=== PATIENT | female | born 1950 | race Caucasian/White ===

== ENCOUNTER → 2018-02-20 15:02 | Outpatient (CLI) | payer MEDICARE, SELFPAY ==
[2018-02-20 18:16] LABS: Anion Gap 7 (5-15); BUN 19 mg/dL (7-18); BUN/Creat Ratio 15.3 RATIO (10-20); Calcium,Total 8.9 mg/dL (8.5-10.1); Chloride 105 mmol/L (98-107); Creatinine, Serum 1.24 mg/dL (0.55-1.02); EST Glomerular Filtration Rate 46 mL/min (>60); Est Glom Filt Rate - Afr Amer 55 mL/min (>60); Glucose 106 mg/dL (74-106); Potassium 3.9 mmol/L (3.5-5.1); Sodium Level 138 mmol/L (136-145); Thyroid Stim Hormone (TSH) 0.17 uIU/mL (0.358-3.74)
== END ==
PROVIDERS: Family Provider Family Medicine; PCP Family Medicine; Visit Provider Family Medicine
DX: E03.9 Hypothyroidism, unspecified (principal); N18.9 Chronic kidney disease, unspecified
CPT/HCPCS: 36415; 80048; 84443

== ENCOUNTER → 2019-09-15 10:06 | Outpatient (CLI) | payer MEDICARE, SELFPAY ==
[2019-09-15 12:43] LABS: Absolute Neutrophil Count 4.3 X10^3/uL (2.0-7.7); Basophil# 0.06 X10^3/uL; Eosinophil# 0.38 X10^3/uL; Eosinophils% 6.1 % (0-5); Hematocrit 43.7 % (37-47); Lymphocyte % 16.1 % (19-41); Mean Corpuscular Hgb 28.5 pg (27.0-32.0); Mean Corpuscular Volume 88.8 fL (81-99); Mean Platelet Vol. 9.1 fl (6.2-12.0); Monocyte# 0.44 X10^3/uL; Monocyte% 7.1 % (0-10); NRBC Flagged by Analyzer 0 % (0-5); Neutrophil # 4.28 X10^3/uL (2.7-7.7); Neutrophil % 68.9 % (47-70); Platelet Count 306 K/mm3 (150-450); RBC Distribution Width CV 13.3 % (11.6-14.6); RBC Distribution Width SD 43.4 fl (35.1-43.9); Red Blood Count 4.92 M/mm3 (4.2-5.4); White Blood Count 6.2 K/mm3 (4.4-11.0)
[2019-09-15 13:19] LABS: Anion Gap 6 (5-15); BUN 18 mg/dL (7-18); Calcium,Total 9.2 mg/dL (8.5-10.1); Chloride 105 mmol/L (98-107); EST Glomerular Filtration Rate 47 mL/min (>60); Est Glom Filt Rate - Afr Amer 57 mL/min (>60); Glucose 95 mg/dL (74-106); Potassium 4.1 mmol/L (3.5-5.1); Sodium Level 139 mmol/L (136-145); T4 Free Direct 1.22 ng/dL (0.76-1.46); Thyroid Stim Hormone (TSH) 1.02 uIU/mL (0.358-3.74)
== END ==
PROVIDERS: Family Provider Family Medicine; PCP Family Medicine; Visit Provider Family Medicine
DX: E03.9 Hypothyroidism, unspecified (principal); R53.83 Other fatigue; R60.9 Edema, unspecified
CPT/HCPCS: 36415; 80048; 84439; 84443; 85025

== ENCOUNTER → 2019-12-24 08:30 | Outpatient (CLI) | payer MEDICARE, SELFPAY ==
--- NOTE | 2019-12-24 08:40 | RAD_ITS ---
STUDY: X-RAY - THORACIC SPINE REASON FOR EXAM: Female, 69 years old. fell 2 weeks ago, mid upper back pain getting worse TECHNIQUE: 3 view(s) of the thoracic spine were obtained. COMPARISON: None. FINDINGS: Normal kyphosis of the thoracic spine. There is no substantial scoliosis. There is multilevel endplate spondylosis of the thoracic vertebrae. There is multilevel disc space narrowing of the thoracic spine. There is a granuloma in the right upper lobe. RAD/Thoracic Spine 3 Views IMPRESSION: No compression fracture. Degenerative changes. Electronically Signed: Sammy Lott MD (Brooks) at 16:51 EDT , Service support ,
== END ==
LOC: HPRAD 08:37 → MTRAD 08:39
PROVIDERS: PCP Family Medicine; Referring Provider Family Medicine; Visit Provider Family Medicine
DX: M54.6 Pain in thoracic spine (principal); W19.XXXA Unspecified fall, initial encounter
CPT/HCPCS: 72072

== ENCOUNTER → 2020-04-12 14:54 | Outpatient (CLI) | payer MEDICARE, SELFPAY ==
--- NOTE | 2020-04-12 15:00 | VDLE_ITS ---
Reason For Study: Edema RIGHT LEFT CFV is compressible, spontaneous, phasic, GSV is normal. competent and demonstrates normal CFV is compressible, spontaneous, phasic, augmentation. competent, and demonstrates normal Procedure augmentation. Exam performed in department. FV is compressible, spontaneous, phasic, A preliminary report was called and/or faxed competent and demonstrates normal to Dr. Gonzalez. augmentation. POP V is compressible, spontaneous, phasic, competent and demonstrates normal augmentation. T/P Trunk is compressible. PTV is compressible. LT PerV is compressible. Interpretation Summary There is no evidence of left lower extremity deep vein thrombosis. Left great saphenous vein appears patent and compressible segmentally. Normal patent/compressible right common femoral vein Ordering Physician: Tanya Gonzalez Referring Physician: Emmett Marshall Performed By: Kassie Ventura, DEVI, RVT
== END ==
PROVIDERS: PCP Family Medicine; Referring Provider Family Medicine; Visit Provider Family Medicine
DX: M79.605 Pain in left leg (principal); L53.9 Erythematous condition, unspecified; R60.9 Edema, unspecified
CPT/HCPCS: 93971

== ENCOUNTER 2020-05-17 10:00 | Outpatient (RCR) | payer MEDICARE, SELFPAY ==
--- NOTE | 2020-05-02 11:00 | HP.PTEVAL ---
Patient's Visit Information ATIYA TAVAREZ is a 69 year old F referred to Physical Therapy by Dr. Emmett Marshall MD with a diagnosis of REPEATED FALLS,H/O FALLS. Date of Evaluation: 05/02/20 Physical Therapist: Bernard Yates, PT, Cert MDT, OCS - Visit Plan Frequency: 2x /Week Duration: 4 Weeks Plan: PT INTERVENTION PROGRESSIVE BALANCE TRAINING,LE STRENGTHENING,FUNCTIONAL STRENGTHENING,ENDURANCE PROGRAM - Subjective This 69 y/o feamle presents to physical therapy with due to falling. Patient has been falling several times past several times past months. Patient falls started last year and and about once a month . Most recently fell off step walking dog bruised left elbow, fell over log in February most of the tIme mechanical fall.Patient doesnt know what is causing the falls.Due to falls patient has developed multiple brusing and laceration. Seen Dr recommneded PT and use cane. Denies dizziness ,tinnutus,visual deficits. Pateint denies weakness. Patient does steps one step at a time.Patient is risk for falls causing injury . Patient contion affects QOL and function. Pateint condition affects ability to walk safely and perform ADL'S /housework tasks. SOCIAL: . VOACTION: retired - Pain Bilateral Back Pain Intensity (Out of 10): 2 Pain Intensity Range: 10 - Objective POSTURE: mild foward posture. GAIT: reciprocal pattern mild unstaedy no LOB. NEURO denies parathesia/tingling,intact. BALANCE: good-. STAIRS: one step at a time with rail. MMT: quads/hams 4-/5,hip abd 3+/5 ,flexion 4-/5. FLEXABLITY : hams mild tight,ankle G-S mild tifght - Balance Scores Functional Gait Assessment Score: 14 % Disability: 53.3400 CATSIB Score (Max score 120 seconds): 88 - Goals Goal 1:: Independant with HEP. Goal Time Frame: 4-6 Weeks Goal 2:: Pateint improve functional gait assessment score by 5 points or > to decrease risk of falls Goal Time Frame: 4-6 Weeks Goal 3:: Patient to improve CATSIB score by 5 points or > to decrease risk of falls Goal Time Frame: 4-6 Weeks Goal 4:: Patient to increase leg strength to 4/5 to improve gait. Goal Time Frame: 4-6 Weeks Goal 5:: Patient to improve LFES score by 5 points or > to improve function and gait. Goal Time Frame: 4-6 Weeks - Rehabilitation Potential Physical Therapy Diagnosis: This patient has h/o of multiple falls with weakness in lower legs thus is risk from further injuries thus will benifit from skilled PT Rehabilitation Potential: Good - Anticipated Interventions Patient/Client Instruction: Educate patient on: Condition, Plan of Care For the Purpose of:: To decrease pain, To increase ROM, To improve muscle performance and motor function, To improve ability to perform ADL's, To increase tolerance to activity/condition/position, To improve ability of physical actions for home/community/work/leisure, To improve gait and locomotor functions, To improve endurance, To improve balance, To improve safety with gait, To reduce risk of recurrence, To prevent re-injury, To improve ability to perform tasks related to life management Therapeutic Exercise to Include: Strength training, Endurance training, Balance training, Gait and locomotor training Comment: LE STRENGTHENING For the Purpose of:: To improve muscle performance and motor function, To improve ability to perform ADL's, To increase tolerance to activity/condition/position, To improve performance and independence with ADL's, To improve ability of physical actions for home/community/work/leisure, To improve gait and locomotor functions, To improve endurance, To improve balance, To improve safety with gait, To improve ability to perform tasks related to life management Thank you for the opportunity to evaluate your patient. For Medicare and Medicare HMO plans, please review the plan of care and approve it. It will need to be FAXED BACK to us at [phone] for Medicare purposes. For Medicare only, by signing this I certify the plan of care. Please let me know if there are questions or concerns regarding this plan of care. Physician Signature: Date:
== END 2020-05-17 19:00 | disposition home or self-care (01) ==
LOC: PT 10:00
PROVIDERS: PCP Family Medicine; Referring Provider Family Medicine; Visit Provider Family Medicine
DX: R29.6 Repeated falls (principal)
CPT/HCPCS: 97110; 97162

== ENCOUNTER → 2020-09-15 15:24 | Outpatient (CLI) | payer MEDICARE, SELFPAY ==
--- NOTE | 2020-09-15 15:27 | RAD_ITS ---
STUDY: X-RAY - RIGHT KNEE REASON FOR EXAM: Female, 69 years old. Pain in both knees for a long time getting worse. Having a lot of grinding and popping also in both. Patient states has had many falls over the yrs. TECHNIQUE: 5 view(s) of the knee. COMPARISON: None. FINDINGS: Normal visualized distal femur. Normal visualized proximal tibia and fibula. Normal proximal tibiofibular articulation. There is severe degenerative arthrosis of the medial femorotibial compartment with severe joint space narrowing. There is mild degenerative arthrosis of the lateral femorotibial compartment. There is mild degenerative arthrosis of the patellofemoral articulation. The soft tissue structures are unremarkable. RAD/Knee 4 or More Views IMPRESSION: Degenerative arthrosis. Electronically Signed: Mychal Fonseca MD at 10:14 EST Tel , Service support ,
--- NOTE | 2020-09-15 15:35 | RAD_ITS ---
STUDY: X-RAY - LEFT KNEE REASON FOR EXAM: Female, 69 years old. Pain in both knees for a long time getting worse. Having a lot of grinding and popping also in both. Patient states has had many falls over the yrs. TECHNIQUE: 4 view(s) of the knee. COMPARISON: None. FINDINGS: Normal visualized distal femur. Normal visualized proximal tibia and fibula. Normal proximal tibiofibular articulation. There is severe degenerative arthrosis of the medial femorotibial compartment with severe joint space narrowing. There is mild degenerative arthrosis of the lateral femorotibial compartment. There is mild degenerative arthrosis of the patellofemoral articulation. The soft tissue structures are unremarkable. RAD/Knee 4 or More Views IMPRESSION: Degenerative arthrosis. Electronically Signed: Mychal Fonseca MD at 10:14 EST Tel , Service support ,
== END ==
PROVIDERS: PCP Family Medicine; Referring Provider Family Medicine; Visit Provider Family Medicine
DX: M25.561 Pain in right knee (principal); M25.562 Pain in left knee
CPT/HCPCS: 73564

== ENCOUNTER → 2020-10-20 14:08 | Outpatient (CLI) | payer MEDICARE, SELFPAY | PROVIDERS: PCP Family Medicine; Visit Provider Family Medicine | DX: N39.0 Urinary tract infection, site not specified (principal) | CPT/HCPCS: 87086; 87088; 87186 ==

== ENCOUNTER 2020-11-24 07:50 | Day surgery (SDC) | payer MEDICARE, SELFPAY ==
[2020-11-13 14:05] VITALS: BMI 39.1
--- NOTE | 2020-11-24 | EGD_PTH ---
PATIENT: ATIYA TAVAREZ LOC: EN U#:[id number] AGE/SX: 70/F ROOM: RE11/24/[address]: Dr. Feliberto Mann MD : 1950 BED: DIS: 11/24/2020 SPEC #: [id number] RECD: 11/24/20 11:37 STATUS: ROBBI MCCOY #: [id number] JING: 11/24/20 00:[address]: Feliberto Mann DEPT: SURGICAL PATHOLOGY RECD BY: Tao Dumont ENTERED: 11/24/20 11:38 SP TYPE: EGD BIOPSY OT DR: Dr. Stefan Sheikh MD Tissues: A - Duodenum, NOS B - Gastric mucous membrane C - Gastric mucous membrane D - Esophageal mucous membrane E - COLON BIOPSY F - Rectum, NOS G - Rectum, NOS Procedures: Special Stain Group II Surgery Specimen Level IV Alcian Blue/PAS (control) HEADER OPERATION: Colonoscopy, EGD ([facility] [place]) PRE-OP DIAGNOSIS: Diverticulitis, GERD, Esophagitis, diarrhea TISSUE SUBMITTED: A - Duodenum biopsy, B - Antrum biopsy for histo and H. pylori, C - EG junction biopsy, D - Mid esophagus biopsy, E - Random colonic biopsy, F - Proximal rectum polyps (x2) biopsy, G - Distal rectum polyp biopsy MICROSCOPIC DIAGNOSIS A. Duodenum, biopsy: No pathologic change. B. Gastric antrum, biopsy: Mild chronic gastritis. See comment. C. Gastroesophageal junction, biopsy: Ulceration with associated acute and chronic inflammation and granulation. No evidence of goblet cell metaplasia. Focal changes of reflux. See comment. D. Mid esophagus, biopsy: Fragments of benign squamous mucosa with no pathologic change. E. Colon, random biopsy: No pathologic change. F. Proximal rectal polyp, biopsy: Fragments of hyperplastic polyp. G. Distal rectal polyp, biopsy: Hyperplastic polyp. AM:jada 11/27/2020 COMMENT B. The results of immunohistochemistry for Helicobacter pylori will be reported separately ([id number]). C. Alcian blue/PAS stain with matched control supports the above diagnosis. MICROSCOPIC DESCRIPTION Slides are reviewed. GROSS DESCRIPTION A - Received in fixative is one container labeled with the patient's name and designated duodenum biopsy. The specimen consists of one irregular fragment of light yin soft tissue that measures 0.3 x 0.3 x 0.1 cm. The specimen is totally submitted in one cassette. B - Received in fixative is one container labeled with the patient's name and designated antrum biopsy. The specimen consists of one irregular fragment of light yin soft tissue that measures 0.3 x 0.3 x 0.1 cm. The specimen is totally submitted in one cassette. C - Received in fixative is one container labeled with the patient's name and designated EG junction biopsy. The specimen consists of multiple irregular fragments of light yin soft tissue that in aggregate measure 1 x 0.4 x 0.1 cm. The specimen is totally submitted in one cassette. D - Received in fixative is one container labeled with the patient's name and designated mid esophagus biopsy. The specimen consists of one irregular fragment of light yin soft tissue that measures 0.6 x 0.3 x 0.1 cm. The specimen is totally submitted in one cassette. E - Received in fixative is one container labeled with the patient's name and designated random colonic biopsy. The specimen consists of multiple irregular fragments of light iyn soft tissue that in aggregate measure 1.5 x 0.4 x 0.1 cm. The specimen is totally submitted in one cassette. F - Received in fixative is one container labeled with the patient's name and designated proximal rectum polyp biopsy. The specimen consists of multiple irregular fragments of light yin soft tissue that in aggregate measure 1 x 0.2 x 0.1 cm. The specimen is totally submitted in one cassette. G - Received in fixative is one container labeled with the patient's name and designated distal rectum polyp biopsy. The specimen consists of one irregular fragment of light yin soft tissue that measures 0.3 x 0.3 x 0.1 cm. The specimen is totally submitted in one cassette. / SJ:rg 11/24/20 TC:2 CPT: 84497 x7, [id number]
--- NOTE | 2020-11-24 08:04 | PCM.HP.BLA ---
Problem List (1) Diarrhea Status: Acute Qualifiers: Diarrhea type: unspecified type Qualified Code(s): R19.7 - Diarrhea, unspecified (2) Abdominal pain Status: Acute Qualifiers: Abdominal location: generalized Qualified Code(s): R10.84 - Generalized abdominal pain (3) Diverticulitis Status: Acute (4) GERD (gastroesophageal reflux disease) Status: Acute Qualifiers: History and Physical Date of Admission: 11/24/20 Intake Visit Reasons: CSCOPE, DIVERTIC[employer]ITIS [employer] Required: No Is patient in pain?: Yes Allergies Penicillins Allergy (Unknown, Verified 11/13/20 14:08) unknown Medications famotidine 20 mg tablet 20 mg PO QHS 11/13/20 [History Confirmed 11/13/20] levothyroxine 125 mcg tablet 125 mcg PO DAILY tab 11/13/20 [History Confirmed 11/13/20] omega-3 fatty acids 1,000 mg capsule 1,000 mg PO DAILY 11/13/20 [History Confirmed 11/13/20] triamcinolone acetonide 0.1 % topical cream applic TOPICAL 11/13/20 [History Confirmed 11/13/20] [facility] Medical History Hemorrhoids (Acute) Diarrhea (Acute) Abdominal pain (Acute) Arthritis (Acute) Back pain (Acute) Bladder infection (Acute) Edema (Acute) Chronic kidney disease (Chronic) Diverticulitis (Acute) GERD (gastroesophageal reflux disease) (Acute) HUGO (obstructive sleep apnea) (Acute) Obesity (Acute) Insomnia (Acute) Fatigue (Acute) Hypothyroidism (Acute) Blood in stool (Acute) Surgical History Hx of hysterectomy (Acute) Hx of excision of mass (Acute) Hx of appendectomy (Acute) Hx of tonsillectomy (Acute) Family History Mother Diabetes Sister Diabetes Social History (Updated 11/13/20 @ 15:[address] Feliberto Mann MD) Smoking Status: Never smoker second hand exposure: No alcohol intake: never substance use type: does not use caffeine: Yes what type of physical activity do you participate in: none HPI HPI HPI: ATIYA TAVAREZ, is a 70 F who presents to the office today for surgical consultation regarding low abdominal pain and back pain and gastroesophageal reflux disease. 70-year-old female. She claims that 20 years ago she had an episode of diverticulitis. She is rather nonspecific but she states she had what ever test that was done to evaluate it. She is not had a colonoscopy. Because of back pain and abdominal pain she presented to the emergency room in [facility] on August 27, 2020. A CT of the abdomen pelvis was performed. This showed distal descending colon and proximal sigmoid colon mild wall thickening consistent with diverticulitis. No fluid collections or free intraperitoneal air. There was extensive colonic diverticulosis as well. There was a description of a right hepatic hemangioma. They offered the ordering doctor opportunity to follow-up with MRI if indicated. The patient states that she was treated with antibiotics. She then states that she had a urinary tract infection. I do not have records of all of this but apparently her first course of antibiotics failed to treat her disease. She then apparently saw an infectious disease specialist in [facility] and was treated with IV antibiotic for a week. Reports from Dr. Emmett Marshall's charting suggests Bactrim DS was utilized starting October 20, 2020. Ciprofloxacin for 10-day course was started on October 02. Metronidazole for 10-day course was started on October 02. She currently denies bright red blood per rectum or melena. Her primary complaint is persistent low back pain and suprapubic pain. She states that since the IV antibiotics she no longer has her dysuria. Further chart review reveals that Dr. Juancarlos Eagle on January 12, 2008 had performed an upper endoscopy with some biopsies. Findings at that time were consistent with gastroesophageal reflux disease and eosinophilic esophagitis. The patient is complaining of increased reflux symptoms currently with increased heartburn. She points to her throat and says that she feels that something is sticking. Since the diverticulitis episode she states that her appetite is decreased. She possibly has lost 5 pounds. She denies family history of colon cancer or colon polyps Referred by Dr. Emmett Marshall and a written copy of my surgical consult recommendations will return to him HPI HPI HPI: ATIYA TAVAREZ, is a 70 F who presents to the office today for ROS General General: Yes fatigue; no weight change, appetite, colon cancer, breast cancer or weakness HEENT HEENT: No difficulty swallowing, eye injury, eye surgery, swollen glands or hoarseness Endo Endocrine: Yes thyroid disease; no diabetes mellitus, thyroid cancer, Hair loss, heat intolerance or cold intolerance Skin Skin: No rash or changing moles Musc Musculoskeletal: Yes arthritis; no back problems, rheumatoid arthritis, gout or joint pain Cardio Cardiovascular: No murmur, pacemaker, heart disease, atrial fibrillation, high blood pressure, heart attack, heart stent, palpitations, shortness of breat with exertion or chest pain Psych Psychiatric: No depression, anxiety or hearing voices Resp Respiratory: No shortness of breath, No sleep apnea, No cough, No COPD, No asthma, No emphysema, No wheezing Gastro Gastrointestinal: Yes abdominal pain, No nausea or vomiting, Yes diarrhea, No constipation, Yes blood in stool, Yes acid reflux, Yes hemorrhoids, No ulcers, No gallbladder problem, No black,tarry stools Wilfredo Hematologic: No blood thinners, No blood disorders, No bleeding, No anemia, No blood clots Neuro Neurologic: No system reviewed and no additional complaints, except as docu, No as per HPI, No abnormal walking, No abnormal hearing, No abnormal movements, No abnormal speech, No behavioral changes, No burning sensations, No confusion, No seizure-like activity, No unsteadiness, No dizziness, No localized weakness, No frequent falls, No headache(s), No lack of coordination, No loss of vision, No memory loss, No numbness, No other visual disturbances, No radiating pain, No restless legs, No sensory deficit, No fainting, No tingling, No tremor(s), No weakness, No other Exam Const General: cooperative, comfortable, no acute distress Nutritional Appearance: obese morbidly obese Orientation: alert, awake, oriented x3 HENMT Head: normal to inspection Eyes General: appearance normal, both eyes and all related structures Resp Effort & Inspection: normal respiratory effort Auscultation: clear to auscultation bilaterally Cardio Rate: regular rate Rhythm: regular rhythm Heart Sounds: no murmurs GI Palpation: soft, no hepatosplenomegaly Auscultation: normal bowel sounds Musc Cervical Spine: normal cervical lordosis Neuro Cognition: normal cognition Extrem Other: Mild left lower extremity swelling as compared to the right. Slightly tender to palpation Psych Affect: normal affect Assessment & Plan Problems 1. Diverticulitis K57.92 2. Gastroesophageal reflux disease, unspecified whether esophagitis present K21.9 Plan 70-year-old female. She has had an episode of diverticulitis in the distal descending and proximal sigmoid colon. She has not been able to achieve endoscopic review in [facility] and presents for surgical consultation locally. In addition she has escalation of GERD symptoms. She remotely has a history of reflux esophagitis and eosinophilic esophagitis. I propose for her a esophagogastroduodenoscopy with anticipated biopsies. Inspecting for possible H. pylori or reflux changes or Mg's changes or persistent eosinophilic esophagitis. I propose for her colonoscopy with possible biopsy or polypectomy as indicated. Very careful inspection of the sigmoid colon will be pursued. She has had an opportunity to ask and have questions answered. We will schedule and proceed at her discretion. Copy: Dr. Emmett Mann M.D., F.A.C.S. I have re-examined the patient. There are no clinical changes since date of exam. Procedure Criteria Procedure Type: Elective COVID Risk Discussion: The surgeon/proceduralist and patient have discussed in detail the risk of exposure to and/or potential harm posed by the COVID-19 virus with having a surgery/procedure at this time versus the risk of delaying the surgery/procedure. It is not possible to know either the risk of delaying the surgery or procedure or chance of getting an infection with perfect accuracy, but a joint decision was made between the patient and the surgeon/proceduralist to proceed at this time with the scheduled surgery/procedure as indicated on the consent form.
[2020-11-24 08:09] VITALS: BP 139/90; PULSE 61; RESP 16; TEMP 36.2; O2SAT 99; BMI 39.2
[2020-11-24] MEDS: Lactated Ringers 1,000 ML 100 ML IV (08:29)
--- NOTE | 2020-11-24 09:15 | IMM_PTH ---
PATIENT: ATIYA TAVAREZ LOC: EN U#:[id number] AGE/SX: 70/F ROOM: RE11/24/[address]: Dr. Feliberto Mann MD : 1950 BED: DIS: 11/24/2020 SPEC #: [id number] RECD: 11/24/20 12:23 STATUS: ROBBI REAdrian #: [id number] JING: 11/24/20 09:[address]: Feliberto Mann DEPT: IMMUNOHISTOCHEMISTRY RECD BY: Mary Gonsalez ENTERED: 11/24/20 12:23 SP TYPE: IMMUNO OTHR DR: Dr. Stefan Sheikh MD Tissues: B - Stomach, NOS Procedures: H Pylori (initial) PHYSICIAN & INSTITUTION [place] [id number] SPECIMEN INFORMATION: Tissue Source: B - Antrum biopsy Clinical Info: Diverticulitis; GERD; esophagitis; diarrhea Specimen Number: [id number] CPT code: 25534 METHODOLOGY: Deparaffinized sections of prefer/formalin-fixed tissue or PAP/DQ stained slides are incubated with monoclonal/polyclonal antibodies/oligonucleotide probes. Localization is made via biotin free immunoperoxidase method. Appropriate controls are performed and reacted as expected. Results on target cell population are indicated in the following table: RESULTS: ANTIBODY / CLONE RESULT Block B H Pylori (polyclonal) negative These tests were developed and their performance characteristics determined by [facility]. They may not have been cleared or approved by the U.S. Food and Drug Administration. The FDA has determined that such clearance or approval is not necessary. INTERPRETATION: B. Antrum, biopsy: Negative for Helicobacter pylori organisms. AM:jada 11/27/2020
[2020-11-24 09:53] VITALS: BP 133/86; BP 139/90; PULSE 71; RESP 16; TEMP 36.6; O2SAT 97
--- NOTE | 2020-11-24 09:54 | OP.EGD_ITS ---
Patient Name: Sandra Warren Procedure Date: 11/24/2020 9:19 AM Date of : 1950 Age: 70 Procedure: Upper GI endoscopy Indications: Suspected gastro-esophageal reflux disease Providers: Feliberto Mann MD Referring MD: Stefan Sheikh Md Medicines: See the Anesthesia note for documentation of the administered medications Complications: No immediate complications. Procedure: Pre-Anesthesia Assessment: - Prior to the procedure, a History and Physical was performed, and patient medications and allergies were reviewed. The patient's tolerance of previous anesthesia was also reviewed. The risks and benefits of the procedure and the sedation options and risks were discussed with the patient. All questions were answered, and informed consent was obtained. Prior Anticoagulants: The patient has taken no previous anticoagulant or antiplatelet agents. ASA Grade Assessment: III - A patient with severe systemic disease. After reviewing the risks and benefits, the patient was deemed in satisfactory condition to undergo the procedure. After obtaining informed consent, the endoscope was passed under direct vision. Throughout the procedure, the patient's blood pressure, pulse, and oxygen saturations were monitored continuously. The gastroscope was introduced through the mouth, and advanced to the second part of duodenum. The upper GI endoscopy was accomplished without difficulty. The patient tolerated the procedure well. Scope In: 9:25:54 AM Scope Out: 9:32:24 AM Total Procedure Duration Time 0 hours 6 minutes 30 seconds Findings: LA Grade A (one or more mucosal breaks less than 5 mm, not extending between tops of 2 mucosal folds) esophagitis with no bleeding was found 35 cm from the incisors. Biopsies were taken with a cold forceps for histology. A mild Schatzki ring was found at the gastroesophageal junction. A medium-sized hiatal hernia was present. The mid esophagus was normal. Biopsies were taken with a cold forceps for histology. Diffuse moderately erythematous mucosa without bleeding was found in the gastric antrum. Biopsies were taken with a cold forceps for histology. Diffuse mildly erythematous mucosa without active bleeding and with no stigmata of bleeding was found in the duodenal bulb. Biopsies were taken with a cold forceps for histology. Impression: - LA Grade A reflux esophagitis. Biopsied. - Mild Schatzki ring. - Medium-sized hiatal hernia. - Normal mid esophagus. Biopsied. - Erythematous mucosa in the antrum. Biopsied. - Erythematous duodenopathy. Biopsied. Recommendation: - Discharge patient to home. - Resume previous diet. - Continue present medications. - Telephone my office for pathology results in 1 week. Procedure Code(s): --- Professional --- 16536, Esophagogastroduodenoscopy, flexible, transoral; with biopsy, single or multiple Diagnosis Code(s): --- Professional --- K21.0, Gastro-esophageal reflux disease with esophagitis K22.2, Esophageal obstruction K44.9, Diaphragmatic hernia without obstruction or gangrene K31.89, Other diseases of stomach and duodenum CPT copyright 2017 [employer]. All rights reserved. The codes documented in this report are preliminary and upon manager treasury review may be revised to meet current compliance requirements. Feliberto Mann MD 11/24/2020 9:54:19 AM This report has been signed electronically. Number of Addenda: 0 Note Initiated On: 11/24/2020 9:19 AM
--- NOTE | 2020-11-24 09:55 | OP.CCLET_ITS ---
11/24/2020 Stefan Sheikh Md Re : Upper GI endoscopy procedure for Sandra Gileliazar Sheikh This procedure was performed on Tuesday, November 24, 2020. My impressions and recommendations are as follows: Impressions : - LA Grade A reflux esophagitis. Biopsied. - Mild Schatzki ring. - Medium-sized hiatal hernia. - Normal mid esophagus. Biopsied. - Erythematous mucosa in the antrum. Biopsied. - Erythematous duodenopathy. Biopsied. Recommendations : - Discharge patient to home. - Resume previous diet. - Continue present medications. - Telephone my office for pathology results in 1 week. My findings are described in the full procedure note, which is enclosed. If I can be of further assistance, please feel free to contact me at Doctor phone number(s): Work: . Sincerely, Feliberto Mann MD 11/24/2020 9:54:19 AM This report has been signed electronically.
--- NOTE | 2020-11-24 09:58 | OP.COLON_ITS ---
Patient Name: Sandra Warren Procedure Date: 11/24/2020 9:34 AM Date of : 1950 Age: 70 Procedure: Colonoscopy Indications: Diverticulitis Providers: Feliberto Mann MD Referring MD: Stefan Sheikh Md Medicines: See the Anesthesia note for documentation of the administered medications Patient Profile: Last Colonoscopy: none. The patient's first colonoscopy is today. Complications: No immediate complications. Procedure: Pre-Anesthesia Assessment: - Prior to the procedure, a History and Physical was performed, and patient medications and allergies were reviewed. The patient's tolerance of previous anesthesia was also reviewed. The risks and benefits of the procedure and the sedation options and risks were discussed with the patient. All questions were answered, and informed consent was obtained. Prior Anticoagulants: The patient has taken no previous anticoagulant or antiplatelet agents. ASA Grade Assessment: III - A patient with severe systemic disease. After reviewing the risks and benefits, the patient was deemed in satisfactory condition to undergo the procedure. After I obtained informed consent, the scope was passed under direct vision. Throughout the procedure, the patient's blood pressure, pulse, and oxygen saturations were monitored continuously. The colonoscope was introduced through the anus and advanced to the cecum, identified by appendiceal orifice and ileocecal valve. The colonoscopy was performed without difficulty. The patient tolerated the procedure well. The quality of the bowel preparation was good. The ileocecal valve and the appendiceal orifice were photographed. Scope In: 9:35:05 AM Scope Withdrawal Time 0 hours 9 minutes 35 seconds Scope Out: 9:49:03 AM Total Procedure Duration Time 0 hours 13 minutes 58 seconds Findings: Hemorrhoids were found on perianal exam. Three 5 mm polyps were found in the rectum. The polyps were sessile. The polyps were removed with a cold biopsy forceps. Resection and retrieval were complete. Multiple diverticula were found in the entire colon. Biopsies for histology were taken with a cold forceps from the entire colon for evaluation of microscopic colitis. Impression: - Hemorrhoids found on perianal exam. - Three 5 mm polyps in the rectum, removed with a cold biopsy forceps. Resected and retrieved. - Diverticulosis in the entire examined colon. Biopsied. Recommendation: - Discharge patient to home. - Resume previous diet. - Continue present medications. - Repeat colonoscopy in 10 years for surveillance based on pathology results. - Telephone my office for pathology results in 1 week. Procedure Code(s): --- Professional --- 30429, Colonoscopy, flexible; with biopsy, single or multiple Diagnosis Code(s): --- Professional --- K64.9, Unspecified hemorrhoids K62.1, Rectal polyp K57.32, Diverticulitis of large intestine without perforation or abscess without bleeding K57.30, Diverticulosis of large intestine without perforation or abscess without bleeding CPT copyright 2017 [employer]. All rights reserved. The codes documented in this report are preliminary and upon dry house attendant review may be revised to meet current compliance requirements. Feliberto Mann MD 11/24/2020 9:58:27 AM This report has been signed electronically. Number of Addenda: 0 Note Initiated On: 11/24/2020 9:34 AM
--- NOTE | 2020-11-24 09:59 | OP.CCLET_ITS ---
11/24/2020 Stefan Sheikh Md Re : Colonoscopy procedure for Sandra Navarro Aguilar This procedure was performed on Tuesday, November 24, 2020. My impressions and recommendations are as follows: Impressions : - Hemorrhoids found on perianal exam. - Three 5 mm polyps in the rectum, removed with a cold biopsy forceps. Resected and retrieved. - Diverticulosis in the entire examined colon. Biopsied. Recommendations : - Discharge patient to home. - Resume previous diet. - Continue present medications. - Repeat colonoscopy in 10 years for surveillance based on pathology results. - Telephone my office for pathology results in 1 week. My findings are described in the full procedure note, which is enclosed. If I can be of further assistance, please feel free to contact me at Doctor phone number(s): Work: . Sincerely, Feliberto Mann MD 11/24/2020 9:58:27 AM This report has been signed electronically.
[2020-11-24 10:00] VITALS: BP 139/90; BP 141/88; PULSE 69; RESP 16; O2SAT 95
[2020-11-24 10:05] VITALS: BP 139/90; BP 142/89; PULSE 63; RESP 16; O2SAT 100
[2020-11-24 10:14] VITALS: BP 139/90; BP 149/87; PULSE 60; RESP 16; TEMP 36.6; O2SAT 100
[2020-11-24 10:30] VITALS: BP 139/90
== END 2020-11-24 10:54 | disposition home or self-care (01) ==
LOC: EN 07:51 → AC 07:51
PROVIDERS: PCP Family Medicine; Referring Provider Family Medicine; Visit Provider Surgery
PROC: 0DJD8ZZ Inspection of Lower Intestinal Tract, Via Natural or Artificial Opening Endoscopic (ICD-10-PCS; CPT 45378; principal; 2020-11-24 09:10)
DX: K29.50 Unspecified chronic gastritis without bleeding (principal); K21.00 Gastro-esophageal reflux disease with esophagitis, without bleeding; K22.2 Esophageal obstruction; K44.9 Diaphragmatic hernia without obstruction or gangrene; K62.1 Rectal polyp; K57.30 Diverticulosis of large intestine without perforation or abscess without bleeding; K64.9 Unspecified hemorrhoids; Z20.828 Contact with and (suspected) exposure to other viral communicable diseases; M19.90 Unspecified osteoarthritis, unspecified site; N18.9 Chronic kidney disease, unspecified; G47.33 Obstructive sleep apnea (adult) (pediatric); E66.9 Obesity, unspecified; E03.9 Hypothyroidism, unspecified; Z87.19 Personal history of other diseases of the digestive system; Z87.440 Personal history of urinary (tract) infections; Z79.899 Other long term (current) drug therapy
CPT/HCPCS: 43239; 45380; 87426; 88305; 88313; 88342; C9803; J7120